=== PATIENT | male | born 1975 | race Two or more races ===

== ENCOUNTER 2023-07-20 15:14 | Emergency (ER) | payer OTHER ==
[~2023-07-20] VITALS: Ht 177.8 cm; Wt 83.5 kg
[2023-07-20] MEDS ORDERED: LOSARTAN POTASS50 MG PO (15:49)
[2023-07-20] MEDS ORDERED: AMLODIPINE BESYL5 MG PO (15:49)
[2023-07-20] MEDS ORDERED: HYDROCHLOROTH12.5 MG PO (15:49)
[2023-07-20] MEDS ORDERED: LOPRESSOR25 MG PO (15:49)
[2023-07-20] MEDS ORDERED: LAMICTAL100 M1 PO (15:50)
[2023-07-20 17:52] LABS: HEMATOCRIT 52.1 % (39.0-48.0); HEMOGLOBIN 17.6 g/dL (13-16.00); MEAN CELL VOLUME 86.3 fL (80.0-100.00); MEAN CORPUSCULAR HEMOGLOBIN 29.1 pg (27.00-32.0); MEAN CORPUSCULAR HGB CONC 33.8 g/dl (32.0-36.0); RED BLOOD COUNT 6.03 M/uL (4.00-6.00); RED CELL DISTRIBUTION WIDTH 12.9 % (11.5-14.5)
[2023-07-20 17:59] LABS: CALCIUM 8.9 mg/dL (8.5-10.1); CREATININE SERUM 2.03 mg/dL (0.70-1.30); GFR 35.53; POTASSIUM 3.1 mEq/L (3.5-5.1)
[2023-07-20 18:10] LABS: PLATELET COUNT 91 K/uL (150-450)
== END 2023-07-20 19:21 | disposition home or self-care (01) ==
LOC: ER 15:14
PROVIDERS: General Practice
DX: D69.3 Immune thrombocytopenic purpura (principal)